=== PATIENT | male | born 1940 | race Caucasian/White ===

== ENCOUNTER 2016-08-03 03:30 | Emergency (ER) | payer BC ==
[~2016-08-03] VITALS: Ht 172.7 cm; Wt 81.5 kg
[2016-08-03] MEDS ORDERED: ATOR20TA86 PO (03:37)
[2016-08-03] MEDS ORDERED: CELE100 PO (03:37)
[2016-08-03] MEDS ORDERED: ESOM20CA31 PO (03:37)
[2016-08-03] MEDS ORDERED: PERTUSS(ACELL),DIPH,TET VAC/PF 0.5 ML VIAL IM ONE (06:30)
[2016-08-03] MEDS ORDERED: LIDOCAINE HCL BUFFERED 1% 20 ML VIAL ONE (06:43)
[2016-08-03] MEDS ORDERED: LIDOCAINE HCL BUFFERED 1% 20 ML VIAL INJ ONE (06:45)
[2016-08-03 07:27] VITALS: BP 166/78
== END 2016-08-03 07:32 | disposition home or self-care (01) ==
LOC: EMS 03:33
DX: S01.511A Laceration without foreign body of lip, initial encounter (principal); K21.9 Gastro-esophageal reflux disease without esophagitis; E78.00 Pure hypercholesterolemia, unspecified; W06.XXXA Fall from bed, initial encounter; Y93.89 Activity, other specified; Y92.89 Other specified places as the place of occurrence of the external cause; Y99.8 Other external cause status
CPT/HCPCS: 12011; 90471; 90715; 99283; J3490